=== PATIENT | male | born 1980 | race Two or more races ===

== ENCOUNTER 2021-05-26 18:14 | Emergency (ER) | payer BC ==
[2021-05-26] MEDS ORDERED: Lidocaine 1% with EPINEPHrine 1:100,000 10 ML MDV INJECT ONE (18:28)
== END 2021-05-26 19:05 | disposition home or self-care (01) ==
LOC: MW.ED 18:14
DX: R04.0 Epistaxis (principal)
CPT/HCPCS: 30903; 99283-25

== ENCOUNTER 2021-05-28 07:53 | Emergency (ER) | payer BC ==
[2021-05-28] MEDS ORDERED: Lidocaine 1% with EPINEPHrine 1:100,000 20 ML MDV INJECT ONE (08:02)
[2021-05-28] MEDS ORDERED: Oxymetazoline 0.05% Nasal Spray 30 ML Bottle NAS ONE (08:03)
[2021-05-28] MEDS ORDERED: Lidocaine 1% with EPINEPHrine 1:100,000 10 ML MDV INJECT ONE (08:11)
== END 2021-05-28 09:02 | disposition home or self-care (01) ==
LOC: MW.ED 07:53
DX: R04.0 Epistaxis (principal)
CPT/HCPCS: 99281; 99282